=== PATIENT | female | born 1945 | race Caucasian/White ===

== ENCOUNTER 2019-01-16 14:54 | Inpatient (IN) | payer MEDICARE, MEDICAID ==
[~2019-01-16] VITALS: Ht 167.6 cm; Wt 90.7 kg
[2019-03-20] VITALS (10 sets, daily range): BP systolic 113–141; BP diastolic 52–77; PULSE 72–97; TEMP 94–98.1
[2019-03-20] MEDS ORDERED: GLUCOPHAGE500 MG/TAB PO (09:23)
[2019-03-20] MEDS ORDERED: PLENDIL 5MG TAB5 MG PO (09:24)
[2019-03-20] MEDS ORDERED: LYRICA 100MG C100 M1 PO (09:25)
[2019-03-20] MEDS ORDERED: THEO-24400 MG PO (09:26)
[2019-03-20] MEDS ORDERED: LASIX 80MG TABL80 MG PO (09:27)
[2019-03-20] MEDS ORDERED: IRON TABLETS325 MG PO (09:28)
[2019-03-20] MEDS ORDERED: FOLIC ACID 40400 MCG PO (09:28)
[2019-03-20] MEDS ORDERED: VITAMIN C500 MG PO (09:29)
[2019-03-20] MEDS ORDERED: TYLENOL PM EXTR1 TA1 PO (09:30)
--- NOTE | 2019-03-20 10:25 | NUR ---
PT TO SURGERY PER BED AT THIS TIME.
--- NOTE | 2019-03-20 14:14 | NUR ---
PT TO ROOM 331 PER BED WITH REPORT FROM SHALINI ANDREWS TENNIS RACKET [email or web address]. LUNGS CLEAR, BOWEL SOUNDS ACTIVE. VSS, DRESSING TO LEFT KNEE CDI WITH RADHA WRAP OVER AQUACEL OVER INCISION. IV TO PUMP, PEDAL PULSES PALPABLE. PT SITTING UP IN BED EATING ICE CHIPS.
--- NOTE | 2019-03-20 15:15 | NUR ---
JUDI met with the patient and the patient's daughter to discuss a discharge plan. The patient lives alone in [place]. The patient has two walkers and brought one in with her and reports independence with ADLs. The patient's PCP is Dr. Baldwin and patient receives medications from [facility]. Patient reports he daughter picks up her medications. The patient reports she turned in advanced directives upon admission. The patient plans to return home with outpatient physical therapy at [facility], first appointment is Tuesday, 03/23. The patient's daughter will transport the patient. There are no additional needs at this time.
--- NOTE | 2019-03-20 16:36 | NUR ---
THERAPY GOT PT UP TO RECLINER THIS PN PT TOLERATED WELL.
--- NOTE | 2019-03-20 19:00 | NUR ---
Report to Renetta Mayes
--- NOTE | 2019-03-20 20:57 | NUR ---
Sitting in chair. Rates pain 6/10, right knee, describes as constant dull pain. Requests to ambulate in [place]. Ambulates with assist of one and use of walker to joint [facility] nurses station and back to room. Gets in bed at this time. Dressing to right knee CDI. Nuñez patent. SCDs applied and jet stream. Patient denies further needs.
--- NOTE | 2019-03-20 23:57 | NUR ---
Sitting up in bed, rates pain 8/10 in right knee. Requests pain medication. Medication administered per orders. Patient denies further needs at this time.
[2019-03-21 02:00] VITALS: BP 109/82; PULSE 88; TEMP 98.1
--- NOTE | 2019-03-21 02:42 | NUR ---
Patient complaining of 5-6/10 pain in right knee. Patient would like to get pain medication. Return to room and the patient says that she thinks if the pillow was just taken out from under her right leg the pain would decrease. Removed pillow and patient says that her right leg was much more comfortable and she no longer wanted the pain medication. Explained that if she changed her mind to let us know. Dressing to right knee CDI. Nuñez patent. Denies further needs.
--- NOTE | 2019-03-21 04:31 | NUR ---
Resting in bed with eyes closed. Respirations even and unlabored. No signs or symptoms of discomfort.
[2019-03-21 04:40] VITALS: BP 120/60; PULSE 84; TEMP 98
[2019-03-21 06:25] LABS: HEMOGLOBIN 10.3 g/dl (12.5-16.0)
[2019-03-21 06:40] LABS: HEMATOCRIT 32.2 % (37.0-47.0)
--- NOTE | 2019-03-21 06:45 | NUR ---
Bedside shift report received from PASCUAL Cartagena. Pt in bed resting, awake and alert, assisted with how to order breakfast. Aileen reeder. Will continue to monitor.
[2019-03-21 07:56] VITALS: BP 129/53; PULSE 84; TEMP 97.6
--- NOTE | 2019-03-21 08:31 | NUR ---
Assessment charted. Pt doing well, denies any pain. R knee dressing is CDI with aquacel in place. Cryocuff, SCD in place. Pt doing well with pain management, denies any pain unless moving, CMS intact and no swelling noted. INT to RH. Instructed to use IS hourly. Pt eating breakfast, very motivated to eat, denies passing any gas yet today. Will continue to monitor.
[2019-03-21 11:25] VITALS: BP 133/56; PULSE 88; TEMP 97.6
[2019-03-21 16:19] VITALS: BP 144/66; PULSE 86; TEMP 98.2
--- NOTE | 2019-03-21 18:10 | NUR ---
Pt has done very well today. Only required PRN pain medications once. Resting well in bed. Denies needs, will give bedside shift report to nightshift nurse who will resume care.
[2019-03-21 20:45] VITALS: BP 129/86; PULSE 87; TEMP 98.6
--- NOTE | 2019-03-21 20:45 | NUR ---
Patient assessment completed. Patient doing well and resting in bed with family in room. Patient is alert and oriented with VSS. Patient does have history of DM. Patient has aquacell to right knee with cryo cuff on. Patient denies pain at this time, states the oxycodone helped a lot. Patient is a stand by assist. Patient has INT Iv in Right hand. Patient denies any other conerns at this time. Call light within reach, will continue to monitor
--- NOTE | 2019-03-21 21:03 | NUR ---
Patient ambulated to bathroom and had large BM, loose.
[2019-03-22 00:14] VITALS: BP 142/61; PULSE 86; TEMP 98.2
[2019-03-22 04:08] VITALS: BP 130/64; PULSE 82; TEMP 97.4
--- NOTE | 2019-03-22 05:45 | NUR ---
Patient sleeping in bed. Call light within reach, will continue to monitor
[2019-03-22] MEDS ORDERED: ASPI325T6 PO (06:47)
[2019-03-22] MEDS ORDERED: NORCO 325 MG-7.1 TAB PO (06:48)
[2019-03-22] MEDS ORDERED: ULTRAM 50MG TAB50 MG PO (06:49)
--- NOTE | 2019-03-22 07:10 | NUR ---
Report from Humaira GARNER.
[2019-03-22 07:47] VITALS: BP 137/71; PULSE 83; TEMP 98
--- NOTE | 2019-03-22 09:25 | NUR ---
PT UP TO BR WITH SBA RETURNED TO RECLINER FOR BREAKFAST. OUT TO [facility] FOR THERAPY. PAIN WELL CONTROLLED WITH PO PAIN MEDS. DRESSING TO RIGHT KNEE CDI. PLAN ON DISCHARGE LATER TODAY.
--- NOTE | 2019-03-22 09:43 | NUR ---
Initial visit; Patient thanked Inventory Control Coordinator for introducing herself and offering God's blessings and a 'get well' message.
[2019-03-22 11:52] VITALS: BP 136/65; PULSE 84; TEMP 97.9
--- NOTE | 2019-03-22 16:01 | NUR ---
DISCHARGE INSTRUCTIONS PROVIDED TO PT AND FAMILY. QUESTIONS ANSWERED, PT LEFT BY WHEEL CHAIR WITH STAFF.
== END 2019-03-22 16:02 | disposition home or self-care (01) | DRG 470 ==
LOC: JCC 03-20 08:43
PROVIDERS: ADMIT Orthopaedic Surgery
PROC: 0SRC0J9 Replacement of Right Knee Joint with Synthetic Substitute, Cemented, Open Approach (ICD-10-PCS; principal; 2019-03-20 13:00)
DX: M17.11 Unilateral primary osteoarthritis, right knee (principal); E11.65 Type 2 diabetes mellitus with hyperglycemia; D50.9 Iron deficiency anemia, unspecified; I10 Essential (primary) hypertension; J45.909 Unspecified asthma, uncomplicated; K21.9 Gastro-esophageal reflux disease without esophagitis; F41.9 Anxiety disorder, unspecified; M06.9 Rheumatoid arthritis, unspecified; Z90.710 Acquired absence of both cervix and uterus; Z79.84 Long term (current) use of oral hypoglycemic drugs; Z87.891 Personal history of nicotine dependence
CPT/HCPCS: 99223; 99231-AI; A4314; A9284; C1776; J0690; J1100; J1815; J2250; J2704; J3370; J7030

== ENCOUNTER 2020-10-03 09:21 | Day surgery (SDC) | payer MEDICARE, MEDICAID ==
[~2020-10-03] VITALS: Ht 167.6 cm; Wt 69.4 kg
[2020-10-03] VITALS (9 sets, daily range): BP systolic 94–129; BP diastolic 46–78; PULSE 82–95; TEMP 97.9–98.2
[~2020-10-03 09:21] MED LIST: ASPI325T6 PO; FOLIC ACID 40400 MCG PO; GLUCOPHAGE500 MG/TAB PO; IRON TABLETS325 MG PO; LASIX 80MG TABL80 MG PO; LYRICA 100MG C100 M1 PO; NORCO 325 MG-7.1 TAB PO; PLENDIL 5MG TAB5 MG PO; THEO-24400 MG PO; TYLENOL PM EXTR1 TA1 PO; ULTRAM 50MG TAB50 MG PO; VITAMIN C500 MG PO
[2020-10-03] MEDS ORDERED: BUMEX2 MG PO (10:03)
[2020-10-03] MEDS ORDERED: TYLENOL PM EXTR1 TA1 PO (10:04)
[2020-10-03] MEDS ORDERED: GLUCOPHAGE1000 MG PO (10:05)
[2020-10-03 13:17] LABS: EOS % 0.7 % (0-4.0); GRAN # 2.2 (1.4-6.5); GRAN % 54.3 % (42.2-75.2); LYMPH # 1.3 (1.2-3.4); LYMPH % 31.1 % (20.0-51.0); MEAN CELL VOLUME 97 fl (80.0-100.0); MEAN CORPUSCULAR HGB CONC 32 g/dl (33.0-37.0); MONO # 0.5 (0.1-0.6); MONO % 12.4 % (1.7-9.3); PLATELET COUNT 136 K/mm3 (130-400); RED BLOOD COUNT 3.12 M/mm3 (4.10-5.30); REDCELL DISTRIBUTION WIDTH-CV 18.2 % (11.5-14.5)
[2020-10-03 13:18] LABS: HEMATOCRIT 30.2 % (37.0-47.0); HEMOGLOBIN 9.5 g/dl (12.5-16.0); MEAN CORPUSCULAR HEMOGLOBIN 30 pg (27.0-31.0)
[2020-10-03 13:26] LABS: INR 1.5 (0.8-3.0); PROTHROMBIN TIME 16.4 SECONDS (9.7-12.8)
--- NOTE | 2020-10-03 14:29 | NUR ---
PT RETURNED FROM ENDO PROCEDURE ROOM INTO BAY#1 PER CART. PT SLEEPY HOWEVER AWAKES TO NAME. ALERT AND ORIENTATED WHEN AMBULATING TO RECLINER IN HER ROOM. PT DENIES PAIN OR DISCOMFORT AT THIS TIME. DENIES NAUSEA. PT NPO FOR NOW PER DR ORDERS RELATED TO EGD PROCEDURE AND THE PRESENCE OF VARISES. VSS, AFEBRILE. DAUGHTER SUE WAS BROUGHT INTO THE ROOM. WILL CONT TO MONITOR PROGRESS.
--- NOTE | 2020-10-03 14:37 | NUR ---
PT TOLERATING WATER WITHOUT DIFFICULTY. LUNGS CLEAR, HRR, MURMUR NOTED. BOWEL SOUNDS PRESENT. DENIES NAUSEA AND VOMITING. C/O, 'DRY MOUTH'. DAUGHTER, SUE IS PRESENT. WILL CONT TO MONITOR PROGRESS.
--- NOTE | 2020-10-03 15:11 | NUR ---
LAB ORDERED AND DRAWN PER DR ORDERS. PT TOLERATING PO'S. VSS. WILL CONT TO MONITOR.
--- NOTE | 2020-10-03 15:15 | NUR ---
WATER OFFERED. PT TOLERATING PO'S WELL. STATES 'FEELING OK'. VSS. WILL CONT TO MONITOR.
--- NOTE | 2020-10-03 15:17 | NUR ---
PT TOLERATING CHICKEN BROTH AND WARM TEA. PT DENIES FEELING LIKE BOIDING OR DEFICATING. VITALS CONTINUE TO BE STABLE. PT STATES, 'ILL BE OK, I FEEL FINE.' WILL MONITOR PROGRESS.
--- NOTE | 2020-10-03 15:22 | NUR ---
PT CONTINUES TO TOLERATE PO'S WITHOUT DIFFICULTY. DENIES PAIN OR NAUSEA. NOT PASSING BLOOD THAT IS NOTED. PAD REMAINS DRY. VSS. WILL MONITOR.
--- NOTE | 2020-10-03 15:24 | NUR ---
VSS STABLE. PAD CONTINIUE TO STAY DRY. IV DC'D, PT TOLERATED WELL. WILL MONITOR PROGRESS. I
--- NOTE | 2020-10-03 15:53 | NUR ---
PT CONTINUES TO DENY PAIN, NAUSEA OR VOMITING. UP TO VOID WITHOUT DIFFICULTY, NO BLOOD NOTED ON HER PAD OR IN THE TOILET. PT TOLERATING BROTH, TEA AND WATER. SPOKE WITH DR PAT ON THE PHONE, REPORTED VS AND STATUS IT PERTAINS TO PASSING BLOOD THROUGH HER RECTUM. VSS AND PT STATES FEELING WELL. PT VERBALIZES UNDERSTANDING OF DISCHARGE INSTRUCTIONS, DISCHARGE PAPERS WERE SIGNED. PT WAS TAKEN OUT TO THE FAMILY CAR, PT DAUGHTERSUE WAS DRIVING.
== END 2020-10-03 16:25 | disposition home or self-care (01) ==
LOC: SDCO 09:21
PROVIDERS: Internal Medicine Gastroenterology
DX: D12.5 Benign neoplasm of sigmoid colon (principal); K57.30 Diverticulosis of large intestine without perforation or abscess without bleeding; K74.60 Unspecified cirrhosis of liver; D50.9 Iron deficiency anemia, unspecified; K29.70 Gastritis, unspecified, without bleeding; K62.1 Rectal polyp; K64.2 Third degree hemorrhoids; Z20.822 Contact with and (suspected) exposure to COVID-19; Z90.49 Acquired absence of other specified parts of digestive tract; Z88.0 Allergy status to penicillin; Z79.84 Long term (current) use of oral hypoglycemic drugs
CPT/HCPCS: J0171; J2704; J7030

== ENCOUNTER 2020-10-10 12:06 | Day surgery (SDC) | payer MEDICARE, MEDICAID ==
[~2020-10-10] VITALS: Ht 167.6 cm; Wt 79.1 kg
[~2020-10-10 12:06] MED LIST changes: +BUMEX2 MG PO; +GLUCOPHAGE1000 MG PO
[2020-10-10 13:26] VITALS: BP 136/61; PULSE 98; TEMP 99
--- NOTE | 2020-10-10 13:53 | NUR ---
patient was ambulated to bathroom and given tap water enema, she was able to hold some of this and did meet resistance with stool, was able to have small brownish with some dark stool after enema, back to [facility] per WC, resting in chair, daughter was brought back to room
[2020-10-10 15:20] VITALS: BP 101/74; PULSE 87; TEMP 98.9
--- NOTE | 2020-10-10 15:20 | NUR ---
Patient brought back to [facility] via cart. Ambulated to chair with one assist. Paitent is awake and alert at this time. Vital signs stable. Denies pain or nausea. MD at bedside speaking with patient in regards to results. IV infusing without difficulty. Requesting water at this time. Will continue to monitor.
[2020-10-10 15:35] VITALS: BP 136/61; PULSE 96
--- NOTE | 2020-10-10 15:35 | NUR ---
Patient states she feels ready to go home at this time. Vital signs stable. Tolerating water without difficulty. Will continue to monitor.
[2020-10-10 15:40] VITALS: BP 123/63; PULSE 86
--- NOTE | 2020-10-10 15:55 | NUR ---
2 IV's removed from patients right wrist intact. Patient to get dressed at this time. Daughter to help.
--- NOTE | 2020-10-10 16:00 | NUR ---
Discharge instructions discussed with patient, all questions answered.
--- NOTE | 2020-10-10 16:07 | NUR ---
Patient brought down to lobby via wheel chair. To be driven home by patients daughter. All belongings in hand. Will monitor.
== END 2020-10-10 16:07 | disposition home or self-care (01) ==
LOC: SDCO 12:06
DX: K92.1 Melena (principal); D50.0 Iron deficiency anemia secondary to blood loss (chronic); K57.30 Diverticulosis of large intestine without perforation or abscess without bleeding; I86.4 Gastric varices; K74.60 Unspecified cirrhosis of liver; K64.2 Third degree hemorrhoids; E87.6 Hypokalemia; R94.5 Abnormal results of liver function studies; T18.4XXA Foreign body in colon, initial encounter; E11.9 Type 2 diabetes mellitus without complications; M19.90 Unspecified osteoarthritis, unspecified site; M06.9 Rheumatoid arthritis, unspecified; J44.9 Chronic obstructive pulmonary disease, unspecified; K21.9 Gastro-esophageal reflux disease without esophagitis; I10 Essential (primary) hypertension; Z79.84 Long term (current) use of oral hypoglycemic drugs; Z87.891 Personal history of nicotine dependence; Z90.49 Acquired absence of other specified parts of digestive tract; Z86.010 Personal history of colon polyps; Z96.651 Presence of right artificial knee joint; Z98.51 Tubal ligation status; Z88.0 Allergy status to penicillin; Z79.899 Other long term (current) drug therapy; Z88.5 Allergy status to narcotic agent
CPT/HCPCS: J2704; J7030

== ENCOUNTER 2020-10-17 19:32 | Emergency (ER) | payer MEDICARE, MEDICAID ==
[~2020-10-17] VITALS: Ht 167.6 cm; Wt 75.9 kg
[2020-10-17 20:52] LABS: BASO # 0.1 (0.0-0.2); BASO % 0.8 % (0.0-2.0); EOS # 0.1 (0.0-0.7); EOS % 2.2 % (0-4.0); GRAN # 2.7 (1.4-6.5); GRAN % 45.5 % (42.2-75.2); LYMPH # 2.4 (1.2-3.4); LYMPH % 40.6 % (20.0-51.0); MEAN CELL VOLUME 95 fl (80.0-100.0); MEAN CORPUSCULAR HGB CONC 32 g/dl (33.0-37.0); MEAN PLATELET VOLUME 10.1 fl (7.4-10.4); MONO # 0.6 (0.1-0.6); MONO % 10.6 % (1.7-9.3); PLATELET COUNT 154 K/mm3 (130-400); REDCELL DISTRIBUTION WIDTH-CV 17.1 % (11.5-14.5)
[2020-10-17 20:58] LABS: ALBUMIN 3.3 gm/dL (3.5-5.0); BILIRUBIN,TOTAL 1.4 mg/dL (0.0-1.0); CALCIUM 8.1 mg/dL (8.4-10.2); CREATININE, serum 1.65 (0.52-1.25); POTASSIUM 3.2 mmol/L (3.4-5.0); TOTAL PROTEIN 9.8 gm/dL (6.4-8.2)
[2020-10-17 21:01] LABS: HEMATOCRIT 28.4 % (37.0-47.0); HEMOGLOBIN 9.2 g/dl (12.5-16.0); MEAN CORPUSCULAR HEMOGLOBIN 31 pg (27.0-31.0)
[2020-10-17 21:21] LABS: COLLECTION METHOD CLEAN CATCH
[2020-10-17 21:52] LABS: MUCOUS Present /lpf; PH 5 (5-8); URINE APPEARANCE Cloudy; URINE BACTERIA Rare /hpf; URINE BILIRUBIN Negative (NEGATIVE); URINE BLOOD 1+ (NEGATIVE); URINE COLOR Yellow; URINE GLUCOSE Negative (NEGATIVE); URINE KETONE Negative (NEGATIVE); URINE LEUKOCYTE ESTERASE Trace (NEGATIVE); URINE NITRATE Positive (NEGATIVE); URINE PROTEIN(semi-quant) Negative (NEGATIVE); URINE RBC 0-2 /hpf; URINE UROBILINOGEN >=4.0 mg/dL (NEGATIVE)
[2020-10-18 02:07] VITALS: TEMP 98.2
[2020-10-18 07:59] VITALS: BP 122/58; PULSE 82
== END 2020-10-18 07:59 | disposition short-term general hospital (02) ==
LOC: COL.ER 19:32
PROVIDERS: Emergency Medicine
DX: K74.60 Unspecified cirrhosis of liver (principal); E87.6 Hypokalemia; N17.9 Acute kidney failure, unspecified; R18.8 Other ascites; I10 Essential (primary) hypertension; E11.9 Type 2 diabetes mellitus without complications; J45.909 Unspecified asthma, uncomplicated; Z20.822 Contact with and (suspected) exposure to COVID-19; Z87.891 Personal history of nicotine dependence; Z90.49 Acquired absence of other specified parts of digestive tract; Z90.710 Acquired absence of both cervix and uterus; Z88.0 Allergy status to penicillin; Z88.5 Allergy status to narcotic agent; Z91.041 Radiographic dye allergy status; Z79.899 Other long term (current) drug therapy; Z79.84 Long term (current) use of oral hypoglycemic drugs
CPT/HCPCS: J0696; J3010